=== PATIENT | female | born 1985 | race Caucasian/White ===

== ENCOUNTER → 2021-03-19 10:51 | Outpatient (CLI) | payer OTHER, MEDICAID, SELFPAY ==
[2021-03-19 12:12] LABS: Hematocrit 31.9 % (36-46); Hemoglobin 9.5 g/dL (12.0-16.0); Mean Corpuscular HGB Conc 29.7 % (30-36); Mean Corpuscular Hemoglobin 18.6 PG (26-34); Mean Corpuscular Volume 62.6 fL (80-100); Platelet Count 373 X10^3/uL (150-400); Red Cell Distribution Width 18.8 % (11.6-14.8); White Blood Cell Count 10.8 X10^3/uL (4.5-11.0)
[2021-03-19 12:24] LABS: Alanine Aminotransferase 17 IU/L (<35); Albumin 4.3 g/dL (3.5-5.0); Albumin Globulin Ratio 1.3 (1.0-2.8); Alkaline Phosphatase 97 U/L (38-126); Aspartate Aminotransferase 26 IU/L (14-36); BUN Creatinine Ratio 12.1 (6-22); Blood Urea Nitrogen 8 mg/dL (7-17); Calcium 9.1 mg/dL (8.4-10.2); Carbon Dioxide 24 mmol/L (22-32); Chloride 106 mmol/L (98-107); Cholesterol 180 mg/dL (140-199); Estimated Glomerular Filt Rate > 60.0 mL/min (>60); Globulin 3.3 g/dL (1.7-4.1); Glucose 89 mg/dL (70-100); HDL Cholesterol 33 mg/dL (40-60); HEMOLYSIS < 15 (0-50); LDL Cholesterol Calculated 87 mg/dL (<100); Potassium 4.1 mmol/L (3.4-5.1); Sodium 139 mmol/L (137-145); Total Protein 7.6 g/dL (6.3-8.2); Triglycerides 299 mg/dL (35-150)
[2021-03-19 12:30] LABS: Bilirubin Total < 0.1 mg/dL (0.2-1.3)
== END ==
PROVIDERS: PCP Nurse Practitioner Family; Referring Provider Nurse Practitioner Family; Visit Provider Nurse Practitioner Family
DX: F32.9 Major depressive disorder, single episode, unspecified (principal); Z00.00 Encounter for general adult medical examination without abnormal findings; Z13.6 Encounter for screening for cardiovascular disorders
CPT/HCPCS: 36415; 80053; 80061; 85027

== ENCOUNTER 2021-09-28 14:40 | Emergency (ER) | payer OTHER, MEDICAID, SELFPAY ==
[2021-09-28 14:51] VITALS: BP 132/75; PULSE 95; RESP 18; TEMP 37; O2SAT 98
[2021-09-28 15:38] LABS: Add Manual Diff / Slide Review NO; Basophils Absolute Auto 100 /uL (0-100); Basophils Percent Auto 0.6 % (0-2); Eosinophils Absolute Auto 200 /uL (0-450); Eosinophils Percent Auto 1.8 % (2-4); Hematocrit 29.4 % (36-46); Lymphocytes Absolute Auto 2900 /uL (1100-4500); Lymphocytes Percent Auto 23.7 % (25-40); Mean Corpuscular HGB Conc 30.5 % (30-36); Mean Corpuscular Hemoglobin 18.3 PG (26-34); Mean Corpuscular Volume 59.9 fL (80-100); Monocytes Absolute Auto 700 /uL (0-900); Monocytes Percent Auto 5.7 % (3-14); Neutrophils Absolute Auto 8400 /uL (1500-7000); Neutrophils Percent Auto 68.2 % (50-75); Platelet Count 410 X10^3/uL (150-400); Red Blood Cell Count 4.91 X10^6/uL (4.0-5.2); Red Cell Distribution Width 19.2 % (11.6-14.8); White Blood Cell Count 12.3 X10^3/uL (4.5-11.0)
--- NOTE | 2021-09-28 15:47 | ED_ITS ---
HPI - General Adult General Chief complaint: Abdominal Pain Stated complaint: Sharp Left Sided Abd Pain Time Seen by Provider: 09/28/21 15:23 Source: patient Mode of arrival: Ambulatory History of Present Illness HPI narrative: Patient is a 36-year-old female here for evaluation of approximately 12 hours of left-sided abdominal discomfort. She states that it started this morning after she woke up. She did start her menstrual cycle this morning as well. No blood in her urine. No change in bowel habits. Has had her gallbladder removed no other abdominal surgeries. States the pain is not worse with palpation or movement. He does have times where in is better than others but it is not been completely gone since the onset. Related Data Previous Rx's Medication Instructions Recorded omeprazole 20 mg capsule,delayed 20 mg PO DAILY #90 cap 01/19/19 release sertraline 25 mg tablet 25 mg PO DAILY #90 tab 03/19/21 Allergies Allergy/AdvReac Type Severity Reaction Status Date / Time latex Allergy Mild Verified 03/19/21 10:32 Review of Systems Constitutional Constitutional: Denies fever(s) Cardiovascular Cardiovascular: Reports system reviewed and no additional complaints, except as documented Respiratory Respiratory: Reports system reviewed and no additional complaints, except as documented Gastrointestinal Gastrointestinal: Reports as per HPI and Reports system reviewed and no additional complaints, except as documented Genitourinary Genitourinary: Reports system reviewed and no additional complaints, except as documented Musculoskeletal Musculoskeletal: Reports system reviewed and no additional complaints, except as documented Integumentary/Breasts Skin/Breast: Reports system reviewed and no additional complaints, except as documented Neurologic Neurologic: Reports system reviewed and no additional complaints, except as documented Hematologic/Lymphatic On Anticoagulants: No Patient History Medical History BMI 40.0-44.9, adult Chicken pox (~1989) Chronic back pain (~2002) Depression (~2002) Encounter for wellness examination in adult (03/19/21) Foot pain (~2006) GERD (gastroesophageal reflux disease) (~2010) Hemorrhoid (~2010) Irregular menstrual cycle (~1984) Plantar warts (~2002) Surgical History (Updated 03/04/19 @ 21:10 by Candida Toussaint) Anesthesia History of cholecystectomy (~05/16/17) [place] teeth removed (~2002) Family History (Updated 03/04/19 @ 21:11 by Candida Toussaint) Father Hyperlipidemia Hypertension Mother History of heart disease Social History Smoking Status: Current some day smoker Tobacco: How many years used: 10 second hand exposure: No alcohol intake: current substance use type: marijuana Smoking Status: Current some day smoker Substance Use Type: marijuana Exam Initial Vital Signs Initial Vital Signs: Vital Signs Temperature 98.6 F 09/28/21 14:51 Pulse Rate 95 H 09/28/21 14:51 Respiratory Rate 18 09/28/21 14:51 Blood Pressure 132/75 09/28/21 14:51 Pulse Oximetry 98 09/28/21 14:51 Const General: cooperative, comfortable, well developed and well groomed HENMT Head: normal to inspection and normocephalic Resp Effort & Inspection: normal respiratory effort Auscultation: clear to auscultation bilaterally Cardio Rate: regular rate Rhythm: regular rhythm GI Palpation: soft, No firm and tender (Left lower quadrant) Skin General: no rashes or lesions noted Neuro General: patient alert, patient awake, patient oriented x3 and moves all extremities Extrem General: normal to inspection and capillary refill normal Psych Appearance: grossly normal and well kempt Course Orders Ordered: ED Orders 09/28/21 15:20 Complete Blood Count AUTO DIFF Stat Comprehensive Metabolic Panel Stat Lipase Stat Urine Culture Stat Urine Microscopic Stat 09/28/21 15:49 CT abdomen pelvis w con Stat Discontinued Medications Sodium Chloride (Normal Saline 0.9%) 1,000 mls @ 1,000 mls/hr IV BOLUS ONE Stop: 09/28/21 16:47 Last Infusion: 09/28/21 16:50 Dose: 0 mls/hr Documented by: Admin: 09/28/21 16:35 Dose: 1,000 mls/hr Documented by: ROBERTO Vital Signs Vital signs: Vital Signs - 8 hr 09/28/21 14:51 Temperature 98.6 F Pulse Rate 95 H Respiratory Rate 18 Blood Pressure 132/75 Pulse Oximetry 98 Medical Decision Making Lab Data Lab results reviewed: Yes I reviewed the patient's lab results. Result diagrams: 09/28/21 15:20 09/28/21 15:20 Labs: Lab Results 09/28/21 09/28/21 09/28/21 Range/Units 15:20 15:20 15:20 WBC 12.3 H (4.5-11.0) X10^3/uL RBC 4.91 (4.0-5.2) X10^6/uL Hgb 9.0 L (12.0-16.0) g/dL Hct 29.4 L (36-46) % MCV 59.9 L (80-100) fL MCH 18.3 L (26-34) PG MCHC 30.5 (30-36) % RDW 19.2 H (11.6-14.8) % Plt Count 410 H (150-400) X10^3/uL Neut % (Auto) 68.2 (50-75) % Lymph % (Auto) 23.7 L (25-40) % [place] % (Auto) 5.7 (3-14) % Eos % (Auto) 1.8 L (2-4) % Baso % (Auto) 0.6 (0-2) % Neut # (Auto) 8400 H (3904-0069) /uL Lymph # (Auto) 2900 (4238-6374) /uL [place] # (Auto) 700 (0-900) /uL Eos # (Auto) 200 (0-450) /uL Baso # (Auto) 100 (0-100) /uL RBC Morphology See below Poikilocytosis 2+ H Anisocytosis 1+ H Microcytosis 3+ H Ovalocytes 1+ H Sodium 139 (137-145) mmol/L Potassium 4.0 (3.4-5.1) mmol/L Chloride 106 (98-107) mmol/L Carbon Dioxide 24 (22-32) mmol/L BUN 11 (7-17) mg/dL Creatinine 0.73 (0.52-1.04) mg/dL Estimated GFR > 60.0 (>60) mL/min BUN/Creatinine Ratio 15.1 (6-22) Glucose 105 H (70-100) mg/dL Calcium 9.2 (8.4-10.2) mg/dL Total Bilirubin 0.2 (0.2-1.3) mg/dL AST 25 (14-36) IU/L ALT 19 (<35) IU/L Alkaline Phosphatase 94 (38-126) U/L Total Protein 7.6 (6.3-8.2) g/dL Albumin 4.4 (3.5-5.0) g/dL Globulin 3.2 (1.7-4.1) g/dL Albumin/Globulin Ratio 1.4 (1.0-2.8) Lipase 54 (23-300) U/L Urine RBC 10-30/hpf H (0-5/HPF) Urine WBC 5-10/hpf H (0-5/HPF) Urine Bacteria None seen (None) Ur Culture Indicated? Specimen cultured Point of Care Testing Test Results Negative Urine Dip Bedside Urine Glucose Negative Bedside Urine Bilirubin - Negative Bedside Urine Ketone - Negative Urine Specific [place] 1.030 Bedside Urine Occult Blood +++ Bedside Urine pH 6.0 Bedside Urine Protein +/- 15 Bedside Urine Urobilinogen - Negative Bedside Urine Nitrite - Negative Bedside Urine Leukocytes - Negative Esterase Point of care testing: Point of Care Testing Test Results Negative Urine Dip Bedside Urine Glucose Negative Bedside Urine Bilirubin - Negative Bedside Urine Ketone - Negative Urine Specific [place] 1.030 Bedside Urine Occult Blood +++ Bedside Urine pH 6.0 Bedside Urine Protein +/- 15 Bedside Urine Urobilinogen - Negative Bedside Urine Nitrite - Negative Bedside Urine Leukocytes - Negative Esterase Imaging Data CT scan - abdomen/pelvis: Radiologist's Impression: [place] [address] CT Scan Report Signed Patient: Cece Ochoa MR#: [id number] : 1985 Acct:[id number] Age/Sex: 36 / F Date of Service: 09/28/21 Loc: ED Accession Number: [id number] ?? Procedure: CT abdomen pelvis w con Ordering Provider: Corbin Gilliam D.O. PROCEDURE:? CT ABDOMEN PELVIS W CON ? INDICATIONS:? Left-sided abdominal pain ? TECHNIQUE:? After the administration of intravenous contrast, axial sections acquired from the lung bases to the pubic symphysis.? Coronal and sagittal reformats were performed.? For radiation dose reduction, the following was used:? automated exposure control, adjustment of mA and/or kV according to patient size.? ? COMPARISON:? None. ? FINDINGS:? Image quality:? Excellent.? ? Lung bases:? Unremarkable. Heart:? No significant findings. ? ABDOMEN: Liver:? Uniform attenuation. Gallbladder:? Prior cholecystectomy. Biliary ducts:? Normal caliber. Pancreas:? Unremarkable.? ? Spleen:? Normal size and appearance. Adrenal Glands:? No adrenal gland nodule or mass. Kidneys and Ureters:? No hydroureteronephrosis or perinephric fat stranding.? No urinary tract calculus. ? Stomach and Bowel:? Stomach, small bowel loops, and colon are unremarkable.? Appendix is normal. Peritoneum:? No abnormal intraperitoneal fluid.? No free air.? ? Ventral Wall: ? No hernias.? Abdominal Nodes:? No retroperitoneal or mesenteric adenopathy by size criteria.? Vessels:? Aorta and inferior vena cava are normal in size.? ? PELVIS: Pelvic Organs:? The urinary bladder, uterus, and ovaries are normal.? Bladder:? Unremarkable.? ? Pelvic Nodes: No enlarged lymph nodes.? Miscellaneous: No hernias are seen. ? ? ? Bones:? Unremarkable.? IMPRESSION:? Normal study. ? ? Dictated by: Buck Dawkins M.D. on 09/28/2021 at 16:25 ? ? Approved by: Buck Dawkins M.D. on 09/28/2021 at 16:27? MDM Narrative Medical decision making narrative: Her urine has blood but she is on her menstrual cycle. CT scan does show leukocytosis. Given the location of the symptoms a CT scan was ordered. There is no acute pathology. I have low suspicion for ovarian pathology given the location of the symptoms. No signs of renal stones. Will hold on further workup for now. Did discuss this with the patient and she understood the lack of a definitive etiology. She was given return precautions. She expressed understanding and agreement. Discharge Plan Departure Patient Disposition: Home Clinical Impression: Abdominal pain Instructions: DI for Abdominal Pain-Adult Activity Restrictions/Additional Instructions: Your workup here in the emergency department is very reassuring. The CT scan did not show any signs of infection or other surgical issues. I recommend you contact your primary doctor for a follow-up. Return to the emergency department for any new or worsening symptoms. Prescriptions: No Action omeprazole 20 mg capsule,delayed release(DR/EC) 20 mg PO DAILY Qty: 90 2RF Rx Instructions: take one tablet daily sertraline 25 mg tablet 25 mg PO DAILY Qty: 90 2RF Referrals: Natasha Contreras ARNP [Primary Care Provider] -
--- NOTE | 2021-09-28 15:49 | DI.CT.S_ITS ---
PROCEDURE: CT ABDOMEN PELVIS W CON INDICATIONS: Left-sided abdominal pain TECHNIQUE: After the administration of intravenous contrast, axial sections acquired from the lung bases to the pubic symphysis. Coronal and sagittal reformats were performed. For radiation dose reduction, the following was used: automated exposure control, adjustment of mA and/or kV according to patient size. COMPARISON: None. FINDINGS: Image quality: Excellent. Lung bases: Unremarkable. Heart: No significant findings. ABDOMEN: Liver: Uniform attenuation. Gallbladder: Prior cholecystectomy. Biliary ducts: Normal caliber. Pancreas: Unremarkable. Spleen: Normal size and appearance. Adrenal Glands: No adrenal gland nodule or mass. Kidneys and Ureters: No hydroureteronephrosis or perinephric fat stranding. No urinary tract calculus. Stomach and Bowel: Stomach, small bowel loops, and colon are unremarkable. Appendix is normal. Peritoneum: No abnormal intraperitoneal fluid. No free air. Ventral Wall: No hernias. Abdominal Nodes: No retroperitoneal or mesenteric adenopathy by size criteria. Vessels: Aorta and inferior vena cava are normal in size. PELVIS: Pelvic Organs: The urinary bladder, uterus, and ovaries are normal. Bladder: Unremarkable. Pelvic Nodes: No enlarged lymph nodes. Miscellaneous: No hernias are seen. Bones: Unremarkable. IMPRESSION: Normal study. Dictated by: Buck Dawkins M.D. on 09/28/2021 at 16:25 Approved by: Buck Dawkins M.D. on 09/28/2021 at 16:27
[2021-09-28 16:12] LABS: Alanine Aminotransferase 19 IU/L (<35); Albumin 4.4 g/dL (3.5-5.0); Albumin Globulin Ratio 1.4 (1.0-2.8); Alkaline Phosphatase 94 U/L (38-126); Aspartate Aminotransferase 25 IU/L (14-36); BUN Creatinine Ratio 15.1 (6-22); Bilirubin Total 0.2 mg/dL (0.2-1.3); Blood Urea Nitrogen 11 mg/dL (7-17); Calcium 9.2 mg/dL (8.4-10.2); Carbon Dioxide 24 mmol/L (22-32); Chloride 106 mmol/L (98-107); Estimated Glomerular Filt Rate > 60.0 mL/min (>60); Globulin 3.2 g/dL (1.7-4.1); Glucose 105 mg/dL (70-100); HEMOLYSIS < 15 (0-50); Lipase 54 U/L (23-300); Sodium 139 mmol/L (137-145); Total Protein 7.6 g/dL (6.3-8.2)
[2021-09-28] MEDS: SODIUM CHLORIDE 0.9% 1,000 ML 1000 ML IV (16:35)
[2021-09-28 16:46] LABS: Anisocytosis 1+; Microcytosis 3+; Ovalocytes 1+; Poikilocytosis 2+
[2021-09-28 17:11] LABS: Bacteria Urine None Seen; Culture Indicated Urine Specimen Cultured; RBC Urine 10-30/HPF (0-5/HPF); WBC Urine 5-10/HPF (0-5/HPF)
== END 2021-09-28 16:50 | disposition home or self-care (01) ==
PROVIDERS: Emergency Provider Emergency Medicine; PCP Nurse Practitioner Family
DX: R10.32 Left lower quadrant pain (principal)
CPT/HCPCS: 74177; 80053; 81003; 81015; 81025; 83690; 85025; 87086; 99284; Q9967

== ENCOUNTER 2022-10-09 15:59 | Emergency (ER) | payer OTHER, MEDICAID, SELFPAY ==
[2022-10-09] VITALS (8 sets, daily range): BP systolic 126–140; BP diastolic 69–102; PULSE 79–95; RESP 18–20; TEMP 37.2; O2SAT 96–98; BMI 44.6
--- NOTE | 2022-10-09 16:19 | DI.RAD.S_ITS ---
PROCEDURE: XR CHEST 2V INDICATIONS: persistent cough getting worse TECHNIQUE: 2 views of the chest were acquired. COMPARISON: None. FINDINGS: Surgical changes and devices: Apparent cholecystectomy clips are faintly seen on the lateral view. Lungs and pleura: Lungs are clear. No pleural effusions or pneumothorax. Mediastinum: Mediastinal contours are normal. Heart size is normal. Bones and chest wall: No suspicious bony abnormalities. Soft tissues appear unremarkable. IMPRESSION: Clear lungs, without infiltrates. Dictated by: Chaz Fields M.D. on 10/09/2022 at 16:04 Approved by: hCaz Fields M.D. on 10/09/2022 at 16:04
--- NOTE | 2022-10-09 16:41 | ED.URI ---
HPI - URI/Sore Throat <Noemi Ndiaye PA-C - Last Filed: 10/09/22 17:51> General Chief Complaint: Upper Respiratory Symptoms Stated Complaint: cough/tired/fever/flu Time Seen by Provider: 10/09/22 16:24 Source: patient Mode of arrival: Ambulatory History of Present Illness HPI Narrative: Patient is here with ongoing upper respiratory illness. States her family all were sick with similar sx, however she continues with hacking cough with some green mucus She feeling extremely fatigued now, but prior to her illness also was tired. Noted her history of BRE with microcytic indices, states she was given iron in the past however she stopped taking her iron supplement Patient does have some irregular heavy periods, lasting 14 days, with heavy flow, but was never able to pin point why that is, has some hard time with fertility. Reports some pins and needles in her fingertips not taking mvi states diet is regular, but she does not avoid red meat due to her health concerns Related Data Previous Rx's Medication Instructions Recorded omeprazole 20 mg capsule,delayed 20 mg PO DAILY #90 caps 01/19/19 release sertraline 25 mg tablet 25 mg PO DAILY #90 tabs 03/19/21 azithromycin 250 mg tablet See Rx Instructions PO .COMPLEX #6 10/09/22 tabs ferrous fumarate 324 mg (106 mg 324 mg PO DAILY #30 tabs 10/09/22 iron) tablet Allergies Allergy/AdvReac Type Severity Reaction Status Date / Time latex Allergy Mild Verified 10/09/22 17:31 Review of Systems <Noemi Ndiaye PA-C - Last Filed: 10/09/22 17:51> Review of Systems Narrative: GENERAL: admits to chills, fatigue, malaise, not much fever, sweats. HEENT: Denies sinus pain, ear pain, sore throat, difficulty swallowing, dizziness. RESPIRATORY: Denies dyspnea, cough, wheezing, hemoptysis, sputum. CARDIOVASCULAR: Denies chest pain, palpitations, orthopnea, edema, GASTROINTESTINAL: Denies nausea, vomiting, abdominal pain, diarrhea, admits to poor appetite : Denies dysuria, frequency, incontinence, hematuria, urinary retention. MUSCULOSKELETAL: admits to joint pain, and bony pain SKIN: Denies rash, skin lesions, or other NEUROLOGIC: Denies weakness, headache, admits to pins and numbness, in her fingers and toes no change in speech, confusion, seizures, incoordination. PSYCHIATRIC: No concerning psychosocial issues. 12 point review of systems is negative except for those stated above Patient History <Noemi Ndiaye PA-C - Last Filed: 10/09/22 17:51> Medical History BMI 40.0-44.9, adult Chicken pox (~1989) Chronic back pain (~2002) Depression (~2002) Encounter for wellness examination in adult (03/19/21) Foot pain (~2006) GERD (gastroesophageal reflux disease) (~2010) Hemorrhoid (~2010) Irregular menstrual cycle (~1984) Plantar warts (~2002) Surgical History (Updated 03/04/19 @ 21:10 by Candida Toussaint) Anesthesia History of cholecystectomy (~05/16/17) [place] teeth removed (~2002) Family History (Updated 03/04/19 @ 21:11 by Candida Toussaint) Father Hyperlipidemia Hypertension Mother History of heart disease Social History Smoking Status: Current some day smoker Tobacco: How many years used: 10 second hand exposure: No alcohol intake: current substance use type: marijuana Smoking Status: Current some day smoker Substance Use Type: marijuana Exam <Noemi Ndiaye PA-C - Last Filed: 10/09/22 17:51> Narrative Exam Narrative: GENERAL: 37 year old patient appears stated age. Well-developed patient, in no acute distress. HEAD: Atraumatic. Normocephalic. EYES: Pupils equal round and reactive. Extraocular motions intact. No scleral icterus. No injection or drainage. conjunctiva Pallor noted ENT: Nose without bleeding, purulent drainage. Throat without erythema, tonsillar hypertrophy or exudate. Airway patent. NECK: Trachea midline. Non tender CARDIOVASCULAR: Regular rate and rhythm without murmurs, gallops, or rubs. RESPIRATORY: rales and ronchi on posterior lobes not cleared with cough to auscultation. GASTROINTESTINAL: Abdomen soft, non-tender, nondistended. EXTREMITIES: No edema or joint tenderness. BACK: Nontender without deformity or crepitance. No flank tenderness. NEURO: AOx3. SKIN: No rash or erythema of visible areas positive for generalized pallor Initial Vital Signs Initial Vital Signs: Vital Signs Temperature 99 F 10/09/22 16:11 Pulse Rate 89 10/09/22 16:11 Respiratory Rate 20 10/09/22 16:11 Blood Pressure 139/89 10/09/22 16:11 Pulse Oximetry 98 10/09/22 16:11 Oxygen Delivery Method 10/09/22 16:11 <Cece Tolentino DO - Last Filed: 10/16/22 17:10> Initial Vital Signs Initial Vital Signs: Vital Signs Temperature 99 F 10/09/22 16:11 Pulse Rate 89 10/09/22 16:11 Respiratory Rate 20 10/09/22 16:11 Blood Pressure 139/89 10/09/22 16:11 Pulse Oximetry 98 10/09/22 16:11 Oxygen Delivery Method 10/09/22 16:11 Course <Noemi Ndiaye PA-C - Last Filed: 10/09/22 17:51> Orders Ordered: ED Orders 10/09/22 16:19 XR chest 2V Stat 10/09/22 16:20 Covid-19 + FLU A/B + RSV - PCR Stat Vital Signs Vital signs: Vital Signs - 8 hr 10/09/22 16:11 Temperature 99 F Pulse Rate 89 Respiratory Rate 20 Blood Pressure 139/89 Pulse Oximetry 98 Oxygen Delivery Method Room Air <Cece Tolentino DO - Last Filed: 10/16/22 17:10> Orders Ordered: ED Orders 10/09/22 16:19 XR chest 2V Stat 10/09/22 16:20 Covid-19 + FLU A/B + RSV - PCR Stat Vital Signs Vital signs: Vital Signs - 8 hr 10/09/22 16:11 Temperature 99 F Pulse Rate 89 Respiratory Rate 20 Blood Pressure 139/89 Pulse Oximetry 98 Oxygen Delivery Method Room Air MDM - URI/Sore Throat <Noemi Ndiaye PA-C - Last Filed: 10/09/22 17:51> Lab Data Lab results narrative: see prior history of hgb 9.0 in 2020 with microcytosis in [place] female Labs: Lab Results 10/09/22 Range/Units 16:20 SARS-CoV-2 (PCR) Negative (Negative) Influenza A (RT-PCR) Flu a positive H (NEGATIVE) Influenza B (RT-PCR) Flu b negative (NEGATIVE) RSV (PCR) Negative (Negative) 09/28/21 15:20 hgb 9.0?L ? g/dL 12.0-16.0 Imaging Data Chest x-ray: Radiologist's Impression: ?Clear lungs, without infiltrates. MDM Narrative Medical decision making narrative: discussed with pt diagnosis she was tested positive for Influenza A Given her abn pulm exam although CXR was NL suspicious for bronchitis also noted prior history of anemia, and current exam is supporting ongoing anemia Findings and discharge diagnosis discussed with patient followed by verbalization of understanding Return precautions discussed with patient/family whom verbalize understanding. <Cece Tolentino, DO - Last Filed: 10/16/22 17:10> Lab Data Labs: Lab Results 10/09/22 Range/Units 16:20 SARS-CoV-2 (PCR) Negative (Negative) Influenza A (RT-PCR) Flu a positive H (NEGATIVE) Influenza B (RT-PCR) Flu b negative (NEGATIVE) RSV (PCR) Negative (Negative) Discharge Plan Departure Patient Disposition: Home Clinical Impression: Influenza A Acute bronchiolitis Qualifiers: Bronchiolitis organism: other organism Qualified Code(s): J21.8 - Acute bronchiolitis due to other specified organisms Anemia, iron deficiency Qualifiers: Iron deficiency anemia type: other iron deficiency Qualified Code(s): D50.8 - Other iron deficiency anemias Instructions: Iron-Deficiency Anemia, DI for Influenza -- Adult, DI for Bronchiolitis Activity Restrictions/Additional Instructions: *You have been diagnosed with Influenza A as well as bronchiolothis as well as anemia *What to do: *Please continue to take your regular medications as directed. New medication prescriptions sent to your pharmacy: Tamiflu Z pack For anemia restart on iron supplement and follow with PCP / SUPPLIER [employer] to address underlying condition, such as malabsorption, iron loss, etc *Please follow up with your primary care provider as soon as you can , call for an appointment. Let them know you were seen in the Emergency Department and that we ask that you be seen in follow up. We will electronically transmit a record of today's note if your PCP is in our system *If you do not have a primary care provider please contact the [facility] Resource line at [phone]. They will ask some questions about your medical history and help get you set up with a doctor in the community. *Return to Emergency Department if you should have any new, worsening or concerning symptoms, such as fever greater than 101 F, shaking chills, worsening pain, weakness SOB , persistent vomiting or other bothersome symptoms Prescriptions: New azithromycin 250 mg tablet See Rx Instructions .ROUTE .COMPLEX Qty: 6 0RF Rx Instructions: For 250 mg dose pack: take 500 mg today (day 1), then 250 mg for 4 days (days 2-5) ferrous fumarate 324 mg (106 mg iron) tablet 324 mg PO DAILY Qty: 30 0RF No Action omeprazole 20 mg capsule,delayed release(DR/EC) 20 mg PO DAILY Qty: 90 2RF Rx Instructions: take one tablet daily sertraline 25 mg tablet 25 mg PO DAILY Qty: 90 2RF Referrals: Natasha Contreras ARNP [Primary Care Provider] - Visit Report Forms: Patient Portal/API <Cece Tolentino DO - Last Filed: 10/16/22 17:10> Cosign ED Attending Coseddieature Attestation: I was immediately available in the department for consultation. Documentation has been reviewed.
[2022-10-09 17:09] LABS: Influenza A - CEPHEID Flu A POSITIVE (NEGATIVE); Influenza B - CEPHEID Flu B NEGATIVE (NEGATIVE); Respiratory Syncytial Virus Negative (Negative)
[2022-10-09 17:13] LABS: COVID-19 CEPHEID 4-PLEX PCR Negative (Negative)
--- NOTE | 2022-10-10 11:06 | PC.NURSE ---
called rx into open pharmacy pt located [facility] [address] [phone], called in all dc rx's because pts other pharmacy closed for
== END 2022-10-09 18:29 | disposition home or self-care (01) ==
PROVIDERS: Emergency Medicine; Emergency Provider Physician Assistant Medical; PCP Nurse Practitioner Family
DX: J10.1 Influenza due to other identified influenza virus with other respiratory manifestations (principal); D50.9 Iron deficiency anemia, unspecified; Z20.822 Contact with and (suspected) exposure to COVID-19
CPT/HCPCS: 0241U; 71046; 99281; 99283

== ENCOUNTER → 2022-10-27 15:38 | Outpatient (CLI) | payer OTHER, MEDICAID, SELFPAY ==
[2022-10-27 17:37] LABS: Hemoglobin A1C% w Est Avg Glu 5.3 % (4.0-6.0)
[2022-10-27 17:59] LABS: Add Manual Diff / Slide Review NO; Basophils Absolute Auto 100 /uL (0-100); Basophils Percent Auto 0.5 % (0-2); Eosinophils Absolute Auto 100 /uL (0-450); Eosinophils Percent Auto 1.2 % (2-4); Hematocrit 29.1 % (36-46); Lymphocytes Absolute Auto 3100 /uL (1100-4500); Mean Corpuscular Volume 61.3 fL (80-100); Monocytes Absolute Auto 700 /uL (0-900); Monocytes Percent Auto 6.8 % (3-14); Neutrophils Absolute Auto 6700 /uL (1500-7000); Neutrophils Percent Auto 62.5 % (50-75); Platelet Count 396 X10^3/uL (150-400); Red Blood Cell Count 4.75 X10^6/uL (4.0-5.2); Red Cell Distribution Width 19.3 % (11.6-14.8); White Blood Cell Count 10.7 X10^3/uL (4.5-11.0)
[2022-10-27 18:01] LABS: HEMOLYSIS < 15 (0-50); Iron 22 ug/dL (37-170)
[2022-10-27 18:09] LABS: Alanine Aminotransferase 23 IU/L (<35); Albumin 4.1 g/dL (3.5-5.0); Albumin Globulin Ratio 1.2 (1.0-2.8); Alkaline Phosphatase 89 U/L (38-126); Aspartate Aminotransferase 24 IU/L (14-36); BUN Creatinine Ratio 11.5 (6-22); Bilirubin Total 0.2 mg/dL (0.2-1.3); Blood Urea Nitrogen 9 mg/dL (7-17); Calcium 8.5 mg/dL (8.4-10.2); Carbon Dioxide 27 mmol/L (22-32); Chloride 104 mmol/L (98-107); Cholesterol 157 mg/dL (140-199); Estimated Glomerular Filt Rate > 60 mL/min (>60); Globulin 3.3 g/dL (1.7-4.1); Glucose 107 mg/dL (70-100); HDL Cholesterol 30 mg/dL (40-60); HEMOLYSIS < 15 (0-50); LDL Cholesterol Calculated 74 mg/dL (<100); Potassium 3.8 mmol/L (3.4-5.1); Sodium 140 mmol/L (137-145); Total Protein 7.4 g/dL (6.3-8.2); Triglycerides 265 mg/dL (35-150)
[2022-10-27 18:13] LABS: Percent Iron Saturation 5 % (15-50); Total Iron Binding Capacity 413 ug/dL (265-497); Transferrin 307 mg/dL (206-381)
[2022-10-27 18:18] LABS: Anisocytosis 2+; Microcytosis 3+; Ovalocytes 1+; Poikilocytosis 1+
[2022-10-27 18:35] LABS: TSH w/ Reflex to FT4 1.77 uIU/mL (0.47-4.68)
[2022-10-27 18:41] LABS: Ferritin 5 ng/mL (6-137)
== END ==
PROVIDERS: PCP Family Medicine; Referring Provider Family Medicine; Visit Provider Family Medicine
DX: D50.9 Iron deficiency anemia, unspecified (principal)
CPT/HCPCS: 36415; 80053; 80061; 82728; 83036; 83540; 83550; 84443; 85025

== ENCOUNTER → 2023-02-20 14:37 | Outpatient (CLI) | payer OTHER, MEDICAID, SELFPAY ==
[2023-02-20 15:21] LABS: Influenza A - CEPHEID Flu A NEGATIVE (NEGATIVE); Influenza B - CEPHEID Flu B NEGATIVE (NEGATIVE); Respiratory Syncytial Virus Negative (Negative)
[2023-02-20 15:28] LABS: COVID-19 CEPHEID 4-PLEX PCR Negative (Negative)
== END ==
PROVIDERS: PCP Family Medicine; Visit Provider Nurse Practitioner Family
DX: R05.9 Cough, unspecified (principal); R50.9 Fever, unspecified
CPT/HCPCS: 0241U

== ENCOUNTER 2023-09-27 13:04 | Day surgery (SDC) | payer OTHER, MEDICAID, SELFPAY ==
[2023-09-22 13:26] VITALS: BMI 45.4
[2023-09-27 13:46] VITALS: BMI 44.2
[2023-09-27 13:51] VITALS: BP 141/80; PULSE 85; RESP 19; TEMP 36.1; O2SAT 99
[2023-09-27] MEDS: LACTATED RINGERS 1,000 ML 42 ML IV (14:03)
--- NOTE | 2023-09-27 14:13 | PM.PREOP ---
Pre-operative Note COVID-19 COVID-19 status: Not tested Interval Note History & Physical reviewed/Exam performed by Physician: Yes Changes to H&P: No ASA Class (for procedural sedation): II
--- NOTE | 2023-09-27 15:28 | SUR.OPER ---
Lithotomy on padded OR bed, head on pillow, arms secured on padded arm boards at <90 degrees abduction. Legs secured in padded yellow fins stirrups.
[2023-09-27] MEDS: BUPIVACAINE 0.5% (PF) 30 ML, EPINEPHrine 0.15 MG INJ (15:34)
--- NOTE | 2023-09-27 15:46 | PM.OP.1 ---
Operative Date/Time/Diagnoses Date of procedure: 09/27/23 Time of procedure: 15:46 Pre-op diagnosis: Perirectal abscess Post-op diagnosis: same Procedure & Clinicians Procedure: Examination under anesthesia and incision and drainage of perirectal abscess Same procedure as scheduled: Yes Surgeon: Sky Mabry Anesthesia Type: General Operative Notes Procedure in detail: The patient was brought to the operating room and placed on the table in the supine position general endotracheal anesthesia was induced. She was positioned in lithotomy position in stirrups. The perineum was prepped with Betadine and a time-out was performed. The area of induration was in the right posterior quadrant about 3 cm from the anal verge. There was a small anterior fissure noted. Palpation cause a small amount purulence to expressed. Next, a well lubricated finger was inserted into the rectum. The sphincter tone was quite high in the anus was tight enough for only 1 finger. A Hill-Grimm retractor was inserted and the distal rectum was examined but no obvious abnormalities were seen other than the high sphincter tone and anterior fissure. Next we made a 1 cm cruciate incision over the area where the purulence was expressed. There was minimal abscess cavity found there. There was no obvious fistula tract. Wound was packed with iodoform gauze and additional 4x4s were applied. EBL: 10 mL Findings: Small anterior fissure and small right posterior perirectal abscess Post-operative Condition: stable Disposition: PACU
[2023-09-27 16:10] VITALS: BP 104/66; PULSE 96; RESP 12; TEMP 36.4; O2SAT 95
[2023-09-27] MEDS: ALBUTEROL/IPRATROPIUM 3 ML AMPUL INH (16:14)
[2023-09-27 16:15] VITALS: BP 108/65; PULSE 93; RESP 12; O2SAT 100
[2023-09-27 16:20] VITALS: BP 111/66; PULSE 92; RESP 13; O2SAT 98
[2023-09-27 16:35] VITALS: BP 129/85; PULSE 84; RESP 12; TEMP 36.7; O2SAT 99
== END 2023-09-27 16:57 | disposition home or self-care (01) ==
PROVIDERS: PCP Family Medicine; Referring Provider Surgery; Visit Provider Surgery
PROC: (CPT 45990; principal; 2023-09-27 13:15)
DX: K61.0 Anal abscess (principal)
CPT/HCPCS: 46050; J0171; J0330; J1100; J1170; J1885; J2250; J2704; J3010